=== PATIENT | male | born 1980 ===

== ENCOUNTER 2024-06-23 18:27 | Outpatient (REF) | payer OTHER, SELFPAY ==
[2024-06-23 22:12] LABS: Microalb ug/mg Crea 97.8 ug/mg Cr
== END 2024-06-23 18:28 | disposition home or self-care (01) ==
LOC: NCHCN 18:27
PROVIDERS: Visit Provider Family Medicine
DX: E10.319 Type 1 diabetes mellitus with unspecified diabetic retinopathy without macular edema (principal)
CPT/HCPCS: 82043; 82570